=== PATIENT | female | born 1975 | race Caucasian/White ===

== ENCOUNTER 2020-07-06 12:12 | Emergency (ER) | payer OTHER ==
[~2020-07-06] VITALS: Ht 167.6 cm; Wt 102.1 kg
--- NOTE | 2020-07-06 12:29 | NUR ---
W/C ASSISTED TO BED 8
[2020-07-06 12:33] VITALS: BP 137/45
--- NOTE | 2020-07-06 12:37 | NUR ---
45 y/o female from home c/o chest pain with SOB, abd pain and nausea x 1 hr. Pt states she was at work when sudden onset chest discomfort and SOB began. Denies vomiting/diarrhea. Pt holding chest at this time. States 10/10 pressure/sharp pain. RR even and unlabored, Positioned for comfort. HOB elevated. Placed on bedside monitor. medhx: denies
--- NOTE | 2020-07-06 12:49 | NUR ---
RAD AT BEDSIDE
[2020-07-06 13:28] LABS: BASOPHILS # (AUTO) 0.1 K/uL (0.00-0.22); BASOPHILS % (AUTO) 0.8 % (0.0-2.0); EOSINOPHILS # (AUTO) 0.1 K/uL (0-0.4); HEMOGLOBIN 14.2 g/dL (12.0-16.0); LYMPHOCYTES # (AUTO) 2.1 K/uL (2.5-16.5); LYMPHOCYTES % (AUTO) 16.2 % (20.5-51.1); MEAN CORPUSCULAR HEMOGLOBIN 27 pg (27-31); MEAN CORPUSCULAR HGB CONC 33 g/dL (33-37); MONOCYTES # (AUTO) 0.6 K/uL (0.8-1.0); MONOCYTES % (AUTO) 4.7 % (1.7-9.3); NEUTROPHILS # (AUTO) 10.1 K/uL (1.8-7.7); NEUTROPHILS % (AUTO) 77.3 % (42.2-75.2); PLATELET COUNT (AUTO) 282 K/uL (140-450); RED BLOOD CELL COUNT(AUTO) 5.18 MIL/uL (4.20-5.40); RED CELL DISTRIBUTION WIDTH 13.8 % (11.6-13.7); WHITE BLOOD COUNT (AUTO) 13.1 K/uL (4.8-10.8)
[2020-07-06 13:44] LABS: ALBUMIN 3.8 g/dL (3.4-5.0); ANION GAP 12.9 (8-16); CARBON DIOXIDE 24.9 mmol/L (21-32); CREATININE 0.8 mg/dL (0.6-1.3); POTASSIUM 3.8 mmol/L (3.5-5.1); TOTAL BILIRUBIN 0.6 mg/dL (0.0-1.0)
[2020-07-06] MEDS: ALUMINUM HYD/MAG/SIMETHICONE 30 ML UDC PO ONE (13:44)
--- NOTE | 2020-07-06 13:49 | NUR ---
Pt to CT via wheelchair
[2020-07-06] MEDS: SUCRALFATE 1 GM TAB PO SCH (14:02)
--- NOTE | 2020-07-06 14:25 | NUR ---
Dr Hidalgo at bedside re-evaluating patient
[2020-07-06] MEDS: KETOROLAC 30 MG/ML VIAL IM ONE (14:43)
--- NOTE | 2020-07-06 14:57 | NUR ---
Pt states decrease in pain after Toradol IM. Pt positioned for comfort, x 1 side rail raised. 4/10 tolerable pain at this time.
[2020-07-06] MEDS: MORPHINE SULFATE 4 MG/ML SYR IM ONE (15:40)
[2020-07-06 15:44] VITALS: BP 134/55
--- NOTE | 2020-07-06 15:44 | NUR ---
Patient discharged with v/s stable. Written and verbal after care instructions given and explained. Patient alert, oriented and verbalized understanding of instructions. Ambulatory with steady gait. All questions addressed prior to discharge. ID band removed. Patient advised to follow up with PMD. Rx of Cipro 750mg, Naprosyn 500mg, Maalox 15ml, Omeprazole 40mg, Flagyl 500mg and Pepcid 20mg given. Patient educated on indication of medication including possible reaction and side effects. Opportunity to ask questions provided and answered.
[2020-07-06] MEDS ORDERED: SUCRALFATE 1 GM TAB PO SCH (21:00)
== END 2020-07-06 15:44 | disposition home or self-care (01) ==
LOC: MED 12:12
DX: M54.5 Low back pain (principal); R10.9 Unspecified abdominal pain; R07.9 Chest pain, unspecified; Z90.49 Acquired absence of other specified parts of digestive tract
CPT/HCPCS: 36415; 71045; 74176; 80053; 81025; 83690; 83880; 84484; 85025; 93005; 96372; 99285; J1885; Q0092